=== PATIENT | male | born 1955 | race Caucasian/White ===

== ENCOUNTER 2020-01-23 20:38 | Inpatient (IN) | payer OTHER ==
[2020-01-23 20:43] VITALS: BMI 28.1
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
[2020-01-23] MEDS ORDERED: ACETAMINOPHEN 1000 MG/100 ML VIAL (NON FORMULARY) IVPB ONE (21:39)
[2020-01-23 21:42] LABS: EOS % 1.5 % (0-4.5); HEMATOCRIT 37.7 % (35.4-49); LYMPH % 25.7 % (8-40); MCH 31.8 pg (25.7-33.7); MCHC 34.6 g/dl (32.0-35.9); MEAN CELL VOLUME 91.8 fl (80-96); MEAN PLT VOLUME 9.2 fl (7.5-11.1); MONO % 10.1 % (3.8-10.2); NEUT % 61.7 % (42.8-82.8); PLATELET COUNT 224 K/MM3 (134-434); RDW 13.6 % (11.9-15.9); WHITE BLOOD COUNT 7.2 K/mm3 (4.0-10.0)
[2020-01-23] MEDS ORDERED: ACETAMINOPHEN INJECTION 100 ML IVPB ONE (21:42)
[2020-01-23 21:54] LABS: INR 0.93 (0.83-1.09)
[2020-01-23 21:57] LABS: ACTIVATED PTT 34.9 SECONDS (25.2-36.5)
[2020-01-23 22:14] LABS: ALK PHOS 72 U/L (45-117); ANION GAP 9 MMOL/L (8-16); BILIRUBIN,TOTAL 0.4 mg/dL (0.2-1); BLOOD UREA NITROGEN 27.2 mg/dL (7-18); CALCIUM 8.8 mg/dL (8.5-10.1); CHLORIDE 105 mmol/L (98-107); CO2 27 mmol/L (21-32); CREATININE 0.8 mg/dL (0.55-1.3); GLUCOSE,RANDOM 223 mg/dL (74-106); POTASSIUM 4.2 mmol/L (3.5-5.1); SGOT/AST 27 U/L (15-37); SGPT/ALT 35 U/L (13-61); SODIUM 140 mmol/L (136-145)
[2020-01-23] MEDS ORDERED: morphine CARPU-JECT 2 MG/1 ML DISP.SYRIN IVPUSH ONE ×2 (23:06→23:54)
[2020-01-23] MEDS ORDERED: IBUPROFEN 600 MG TABLET (FP) PO ONE (23:08)
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
[2020-01-24] MEDS ORDERED: MORPHINE SULFATE 2 MG/ML VIAL ONE (00:13)
[2020-01-24] MEDS ORDERED: ACETAMINOPHEN 325 MG TABLET (FP) PO PRN (02:38)
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
[2020-01-24] MEDS: IBUPROFEN 600 MG TABLET (FP) PO PRN ×2 (04:39→18:12)
[2020-01-24] MEDS: HEPARIN NA (PORCINE) 5,000 UNITS/ML 1ML VIAL SQ SCH ×2 (04:59→15:32)
[2020-01-24] MEDS: INSULIN SLIDING SCALE (NOVOLOG) 1 VIAL SQ SCH ×3 (06:48→18:07)
[2020-01-24 07:37] LABS: BASO % 0.4 % (0-2.0); EOS % 2.9 % (0-4.5); HEMATOCRIT 36.2 % (35.4-49); HEMOGLOBIN 12.9 GM/dL (11.7-16.9); LYMPH % 34.1 % (8-40); MCH 32.3 pg (25.7-33.7); MCHC 35.6 g/dl (32.0-35.9); MEAN CELL VOLUME 90.7 fl (80-96); MEAN PLT VOLUME 9.1 fl (7.5-11.1); MONO % 11.4 % (3.8-10.2); NEUT % 51.2 % (42.8-82.8); PLATELET COUNT 206 K/MM3 (134-434); RBC 3.99 M/mm3 (4.00-5.60); RDW 13.2 % (11.9-15.9); WHITE BLOOD COUNT 8.6 K/mm3 (4.0-10.0)
[2020-01-24 08:05] LABS: BLOOD UREA NITROGEN 21.9 mg/dL (7-18); CALCIUM 8.7 mg/dL (8.5-10.1); CREATININE 0.7 mg/dL (0.55-1.3)
--- NOTE | 2020-01-24 09:30 | EKG ---
Test Reason : Blood Pressure : / mmHG Vent. Rate : 076 BPM Atrial Rate : 076 BPM P-R Int : 194 ms QRS Dur : 094 ms QT Int : 388 ms P-R-T Axes : 049 027 025 degrees QTc Int : 436 ms NORMAL SINUS RHYTHM NORMAL ECG NO PREVIOUS ECGS AVAILABLE Confirmed by Jovon Honeycutt ([id number]) on 01/24/2020 9:30:26 AM Referred By: Confirmed By:Jovon Honeycutt
[2020-01-24] MEDS ORDERED: ASPIRIN 81 MG CHEWABLE TABLETS PO SCH (10:00)
[2020-01-24] MEDS ORDERED: KETOROLAC TROMETHAMINE 30 MG/1 ML VIAL IM ONE (12:45)
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
[2020-01-24 18:38] VITALS: BP 122/56; PULSE 57; TEMP 98.2
[2020-01-24] MEDS ORDERED: ROSUVASTATIN CA 10 MG TABLET (FP) PO SCH (22:00)
== END 2020-01-24 19:34 | disposition home or self-care (01) | DRG 347 ==
LOC: JER 20:38 → JERBED 01-24 00:51 → INTOOBSV 01-24 00:51 → OBSVTOIN 01-24 02:42 → J7W 01-24 04:04
PROVIDERS: ADMIT Internal Medicine; ATTEND Internal Medicine
DX: S39.82XA Other specified injuries of lower back, initial encounter (principal); E11.65 Type 2 diabetes mellitus with hyperglycemia; I10 Essential (primary) hypertension; M48.07 Spinal stenosis, lumbosacral region; V49.09XA Driver injured in collision with other motor vehicles in nontraffic accident, initial encounter; Y93.89 Activity, other specified; Y92.89 Other specified places as the place of occurrence of the external cause; Y99.9 Unspecified external cause status
CPT/HCPCS: 36415; 70450-TC; 72125-TC; 72131-TC; 73110-TC-LT-FY; 73110-TC-RT-FY; 73130-TC-LT-FY; 73130-TC-RT-FY; 80048; 80053; 82550; 82553; 82962; 84484; 85025; 85610; 85730; 93005; 93010; 97116-GP; 97161-GP; 99285-25; G0378; J0131

== ENCOUNTER 2021-07-17 18:37 | Emergency (ER) | payer OTHER ==
[2021-07-17 18:45] VITALS: BP 176/81; PULSE 90; TEMP 98.5; BMI 37.0
== END 2021-07-17 19:00 | disposition home or self-care (01) ==
LOC: JERFT 18:37
DX: S61.111A Laceration without foreign body of right thumb with damage to nail, initial encounter (principal); W27.4XXA Contact with kitchen utensil, initial encounter; Y93.G1 Activity, food preparation and clean up
CPT/HCPCS: 99281-25